=== PATIENT | female | born 1970 | race Two or more races ===

== ENCOUNTER 2025-01-05 21:19 | Inpatient (IN) | payer OTHER ==
[~2025-01-05] VITALS: Ht 167.6 cm; Wt 116.6 kg
[2025-01-05 21:38] VITALS: PULSE 144; RESP 29; O2SAT 95
[2025-01-05] MEDS ORDERED: ACETAMINOPHEN 650MG SUPP PR PRN (21:45)
[2025-01-05] MEDS ORDERED: AMIODARONE 360MG/200ML 200 ML IV SCH (21:45)
[2025-01-05] MEDS: AMIODARONE 360MG/200ML 200 ML IV SCH ×2 (22:00→22:12)
[2025-01-05] MEDS: MAGNESIUM 2 G PREMIX 50 ML IV ONE (22:06)
[2025-01-05] MEDS: HEPARIN 5000 UNITS/ML VIAL IV ONE (22:06)
[2025-01-05] MEDS: SODIUM CHLORIDE 0.9% 500 ML IV ONE (22:08)
[2025-01-05] MEDS ORDERED: HEPARIN 1000 UNITS/ML 10ML ONE ×2 (22:09→23:01)
[2025-01-05] MEDS ORDERED: IODIXANOL 320 MG/ML 150ML BOTTLE IV ONE (22:09)
[2025-01-05] MEDS ORDERED: LIDOCAINE HCL 1% 20ML VIAL ONE (22:09)
[2025-01-05] MEDS: ASPIRIN 325MG TABLET NG ONE (22:13)
[2025-01-05 22:24] LABS: BASOPHILS % 1.0 % (0.0-2.0); EOSINOPHILS % 3.8 % (0.0-5.0); HEMATOCRIT. 35.9 % (36.0-48.0); HEMOGLOBIN. 11.1 g/dL (12.0-16.0); LYMPHOCYTES % 65.7 % (20.0-50.0); MEAN PLATELET VOLUME 8.4 fl (7.4-10.4); MONOCYTES % 3.6 % (2.0-8.0); NEUTROPHILS % 25.9 % (40.0-76.0); PLATELET 209 x1000/uL (130-400); RED BLOOD CELL COUNT 3.92 mill/uL (4.2-5.4); RED CELL DISTRIBUTION WIDTH 15.4 % (11.6-14.6)
[2025-01-05 22:25] VITALS: PULSE 108; RESP 27; O2SAT 97
[2025-01-05 22:32] LABS: INR 1.0
[2025-01-05 22:41] LABS: CREATININE 1.5 mg/dL (0.6-1.0); UREA NITROGEN BLOOD 14 mg/dL (9-23)
[2025-01-05] MEDS ORDERED: EPINEPHRINE 0.1MG/ML (1:10,000) 10ML SYR ONE (22:42)
[2025-01-05] MEDS ORDERED: ATROPINE SULFATE 1MG/10ML SYR ONE (22:42)
[2025-01-05 22:43] LABS: ASPARTATE AMINOTRANSFERASE 209 IU/L (<34); BILIRUBIN DIRECT < 0.1 mg/dL (<=3.0); BILIRUBIN TOTAL 0.2 mg/dL (0.1-1.0); PROTEIN TOTAL 5.0 g/dL (6.0-8.3)
[2025-01-05 22:47] LABS: TROPONIN I HIGH SENSITIVITY 200 ng/L (3.0-34)
[2025-01-05 22:48] LABS: PHOSPHORUS 9.7 mg/dL (2.5-4.9)
[2025-01-05] MEDS ORDERED: DOCUSATE SODIUM 100MG CAPSULE PO PRN (23:00)
[2025-01-05 23:02] LABS: BG BASE EXCESS -9.7 mmol/L (-2.0-3.0); BG CARBOXYHEMOGLOBIN 0.7 % (0.5-1.5); BG DEOXYHEMOGLOBIN 5.4 % (0.0-5.0); BG FRACTION INSPIRED OXYGEN 100; BG HCO3 ACT 17.0 mmol/L (21.0-28.0); BG METHEMOGLOBIN 0.0 % (0.5-1.5); BG OXYGEN SATURATION 94.6 % (94.0-98.0); BG OXYHEMOGLOBIN 93.9 % (94.0-98.0); BG PCO2 39.8 mmHg (32.0-45.0); BG PEEP (cmH2O) 5.0 cmH2O; BG PH 7.248 (7.350-7.450); BG PO2 87.3 mmHg (83.0-108.0); BG SAMPLE SITE ALINE; BG TIDAL VOLUME(mL) 400.0 mL; BG TOTAL HEMOGLOBIN 12.2 g/dL (12.0-16.0); BG VENT MODE VENT - AC; BG VENT RATE 26.0 set
[2025-01-05] MEDS ORDERED: TICAGRELOR 90 MG TABLET PO ONE (23:07)
[2025-01-05 23:19] VITALS: PULSE 76; RESP 28; O2SAT 98
[2025-01-05 23:25] VITALS: TEMP 98.3
[2025-01-05 23:36] VITALS: BP 123/82; PULSE 78; RESP 12; O2SAT 97
[2025-01-05 23:45] VITALS: BP 118/82; PULSE 72; RESP 29; O2SAT 93
[2025-01-05] MEDS ORDERED: IPRATROPIUM/ALBUTEROL 0.5-3(2.5)MG/3ML NEB NEB PRN (23:45)
[2025-01-06] VITALS (113 sets, daily range): BP systolic 85–228; BP diastolic 61–164; PULSE 57–112; RESP 12–33; TEMP 36.7–37.2; O2SAT 96–100
[2025-01-06] MEDS ORDERED: NOREPINEPHRINE 8MG/250ML PMX 250 ML IV PRN
[2025-01-06] MEDS: NOREPINEPHRINE 8MG/250ML PMX 250ML IV PRN (00:34)
[2025-01-06] MEDS: POTASSIUM CHLORIDE 20MEQ/PACKET PO SCH (00:41)
[2025-01-06] MEDS: DEXMEDETOMIDINE 100 ML IV PRN (00:56)
[2025-01-06 02:34] LABS: TROPONIN I HIGH SENSITIVITY 15898 ng/L (3.0-34)
[2025-01-06] MEDS ORDERED: MAGNESIUM 2 G PREMIX 50 ML IV PRN (04:45)
[2025-01-06] MEDS ORDERED: SODIUM PHOSPHATE 15 MMOL in SODIUM CHLORIDE 0.9% 245 ML IV PRN (04:45)
[2025-01-06] MEDS ORDERED: DEXTROSE 50% WATER 50ML SYRINGE IV PRN ×3 (04:45→08:45)
[2025-01-06] MEDS ORDERED: POTASSIUM CHLORIDE 40 MEQ in SODIUM CHLORIDE 0.9% 230 ML IV PRN (04:45)
[2025-01-06] MEDS ORDERED: BLOOD SUGAR DIAGNOSTIC STRIP TEST PRN ×2 (04:45→08:00)
[2025-01-06] MEDS: BLOOD SUGAR DIAGNOSTIC STRIP TEST SCH ×3 (05:20→12:37)
[2025-01-06] MEDS: DEXT 5%/0.9% NACL 1,000 ML IV SCH (05:23)
[2025-01-06] MEDS: INSULIN REGULAR 100U/100ML PMX 100 ML IV SCH (05:26)
[2025-01-06] MEDS: SODIUM CHLORIDE 0.9% 1,000 ML IV SCH (05:50)
[2025-01-06 06:10] LABS: PLATELET 324 x1000/uL (130-400); RED BLOOD CELL COUNT 4.66 mill/uL (4.2-5.4); RED CELL DISTRIBUTION WIDTH 14.8 % (11.6-14.6)
[2025-01-06 06:27] LABS: LDL CHOLESTEROL 108 mg/dL (5-100); TRIGLYCERIDE 119 mg/dL (0-150); UREA NITROGEN BLOOD 21 mg/dL (9-23)
[2025-01-06 06:28] LABS: ASPARTATE AMINOTRANSFERASE 579 IU/L (<34)
[2025-01-06 06:29] LABS: BILIRUBIN TOTAL 0.3 mg/dL (0.1-1.0); PROTEIN TOTAL 6.5 g/dL (6.0-8.3)
[2025-01-06 06:56] LABS: CREATININE 2.0 mg/dL (0.6-1.0)
[2025-01-06 06:58] LABS: TROPONIN I HIGH SENSITIVITY 45931 ng/L (3.0-34)
[2025-01-06] MEDS ORDERED: BLOOD SUGAR DIAGNOSTIC STRIP TEST SCH (07:50)
[2025-01-06] MEDS ORDERED: INSULIN LISPRO 100 UNITS/ML SUBCUT SCH (08:20)
[2025-01-06] MEDS ORDERED: PIPERACILLIN/TAZO 3.375G/50ML 50 ML IV SCH (09:00)
[2025-01-06] MEDS: ASPIRIN 81MG TABLET PO SCH (09:07)
[2025-01-06] MEDS: PANTOPRAZOLE SODIUM 40 MG/VIAL IV SCH (09:07)
[2025-01-06] MEDS: FUROSEMIDE 40MG TABLET PO SCH (09:07)
[2025-01-06] MEDS: TICAGRELOR 90 MG TABLET PO SCH (09:08)
[2025-01-06] MEDS: PIPERACILLIN/TAZO 3.375G/50ML 50 ML IV SCH (09:46)
[2025-01-06 09:49] LABS: PHOSPHORUS 2.5 mg/dL (2.5-4.9)
[2025-01-06 10:17] LABS: TROPONIN I HIGH SENSITIVITY 69330 ng/L (3.0-34)
[2025-01-06] MEDS: DEXT 5%/0.45% NACL 1000ML 1,000 ML IV SCH (10:29)
[2025-01-06 10:35] LABS: BG BASE EXCESS -3.0 mmol/L (-2.0-3.0); BG CARBOXYHEMOGLOBIN 0.7 % (0.5-1.5); BG DEOXYHEMOGLOBIN 0.0 % (0.0-5.0); BG HCO3 ACT 20.1 mmol/L (21.0-28.0); BG METHEMOGLOBIN 0.3 % (0.5-1.5); BG OXYGEN SATURATION 100.0 % (94.0-98.0); BG OXYHEMOGLOBIN 99.0 % (94.0-98.0); BG PCO2 30.4 mmHg (32.0-45.0); BG PH 7.438 (7.350-7.450); BG PO2 356.5 mmHg (83.0-108.0); BG TOTAL HEMOGLOBIN 13.7 g/dL (12.0-16.0)
[2025-01-06] MEDS: FUROSEMIDE 100MG/10ML VIAL IVP SCH (12:01)
[2025-01-06] MEDS: VANCOMYCIN 2,000 MG in DEXT 5% WATER 500 ML IV NR (12:03)
[2025-01-06] MEDS: INSULIN LISPRO 100 UNITS/ML SUBCUT SCH (12:42)
[2025-01-06 13:21] LABS: PHOSPHORUS 1.8 mg/dL (2.5-4.9)
[2025-01-06] MEDS: ATORVASTATIN CALCIUM 40MG TABLET PO SCH (21:10)
[2025-01-06 22:31] LABS: CLARITY URINE CLEAR (CLEAR); COLOR URINE YELLOW (YELLOW); GLUCOSE URINE NEGATIVE (NEGATIVE); KETONES URINE NEGATIVE (NEGATIVE); LEUKOCYTE ESTERASE URINE NEGATIVE (NEGATIVE); NITRITE URINE NEGATIVE (NEGATIVE); OCCULT BLOOD URINE 2+ (NEGATIVE); PH URINE 7.0 (4.5-8.0); PROTEIN URINE TRACE (NEGATIVE); SPECIFIC GRAVITY URINE 1.009 (1.005-1.030); UROBILINOGEN URINE 0.2 E.U./dL (0.2-1.0)
[2025-01-06 22:37] LABS: *AMPHETAMINES SCREEN URINE NEGATIVE (NEGATIVE); *BARBITURATES SCREEN URINE NEGATIVE (NEGATIVE); *BENZODIAZEPINES SCREEN URINE NEGATIVE (NEGATIVE); *COCAINE SCREEN URINE NEGATIVE (NEGATIVE); BACTERIA URINE TRACE; CANNABINOID URINE SCREEN NEGATIVE (NEGATIVE); ECSTASY MDMA SCREEN URINE NEGATIVE (NEGATIVE); METHADONE URINE SCREEN NEGATIVE (NEGATIVE); OPIATES URINE SCREEN NEGATIVE (NEGATIVE); PHENCYCLIDINE URINE SCREEN NEGATIVE (NEGATIVE); SQUAMOUS EPITHELIAL CELL URINE RARE /lpf (RARE/1+); WBC URINE 0-2 /hpf (0-2)
[2025-01-07] VITALS (71 sets, daily range): BP systolic 89–157; BP diastolic 56–94; PULSE 60–97; RESP 17–23; TEMP 36.6–37.3; O2SAT 98–100
[2025-01-07 06:45] LABS: BASOPHILS % 0.2 % (0.0-2.0); EOSINOPHILS % 0.1 % (0.0-5.0); HEMATOCRIT. 35.6 % (36.0-48.0); HEMOGLOBIN. 11.6 g/dL (12.0-16.0); LYMPHOCYTES % 8.3 % (20.0-50.0); MEAN PLATELET VOLUME 8.5 fl (7.4-10.4); MONOCYTES % 8.0 % (2.0-8.0); NEUTROPHILS % 83.4 % (40.0-76.0); PLATELET 237 x1000/uL (130-400); RED BLOOD CELL COUNT 4.13 mill/uL (4.2-5.4); RED CELL DISTRIBUTION WIDTH 14.9 % (11.6-14.6)
[2025-01-07 07:01] LABS: UREA NITROGEN BLOOD 33 mg/dL (9-23)
[2025-01-07 07:03] LABS: PHOSPHORUS 3.4 mg/dL (2.5-4.9)
[2025-01-07 07:11] LABS: CREATININE 3.4 mg/dL (0.6-1.0)
[2025-01-07] MEDS ORDERED: FUROSEMIDE 40MG TABLET PO SCH (07:15)
[2025-01-07] MEDS: IPRATROPIUM/ALBUTEROL 0.5-3(2.5)MG/3ML NEB HHN PRN (10:01)
[2025-01-07] MEDS ORDERED: VANCOMYCIN 750MG PREMIX 150 ML IV SCH (11:00)
[2025-01-07 13:22] LABS: TROPONIN I HIGH SENSITIVITY 32025 ng/L (3.0-34)
[2025-01-07 15:00] LABS: BG BASE EXCESS 0.1 mmol/L (-2.0-3.0); BG CARBOXYHEMOGLOBIN 0.3 % (0.5-1.5); BG DEOXYHEMOGLOBIN 1.4 % (0.0-5.0); BG FRACTION INSPIRED OXYGEN 40; BG HCO3 ACT 23.4 mmol/L (21.0-28.0); BG METHEMOGLOBIN 0.3 % (0.5-1.5); BG OXYGEN SATURATION 98.6 % (94.0-98.0); BG OXYHEMOGLOBIN 98.0 % (94.0-98.0); BG PCO2 33.5 mmHg (32.0-45.0); BG PEEP (cmH2O) 5.0 cmH2O; BG PH 7.462 (7.350-7.450); BG PO2 128.4 mmHg (83.0-108.0); BG SAMPLE SITE RIGHT RADIAL; BG TIDAL VOLUME(mL) 450.0 mL; BG TOTAL HEMOGLOBIN 12.1 g/dL (12.0-16.0); BG VENT MODE VENT - AC; BG VENT RATE 18.0 set
[2025-01-07] MEDS: ENOXAPARIN 40MG/0.4ML SYR SUBCUT SCH (19:27)
[2025-01-07 20:26] LABS: TROPONIN I HIGH SENSITIVITY 31572 ng/L (3.0-34)
[2025-01-07 20:44] LABS: SODIUM URINE RANDOM 84.0 mEq/L
[2025-01-07 20:51] LABS: CREATININE URINE RANDOM 133.5 mg/dL
[2025-01-07] MEDS: KCL 20MEQ/100ML PREMIX 100 ML IV PRN (21:32)
[2025-01-08] VITALS (70 sets, daily range): BP systolic 102–137; BP diastolic 64–90; PULSE 65–87; RESP 16–30; TEMP 36.3–37.1; O2SAT 98–100
[2025-01-08 01:59] LABS: TROPONIN I HIGH SENSITIVITY 34809 ng/L (3.0-34)
[2025-01-08] MEDS: MIDAZOLAM HCL 2 MG/2 ML VIAL IV SCH (02:29)
[2025-01-08 06:46] LABS: INR 1.0
[2025-01-08 06:52] LABS: BASOPHILS % 0.2 % (0.0-2.0); EOSINOPHILS % 0.2 % (0.0-5.0); HEMATOCRIT. 34.1 % (36.0-48.0); HEMOGLOBIN. 11.5 g/dL (12.0-16.0); LYMPHOCYTES % 9.8 % (20.0-50.0); MEAN PLATELET VOLUME 8.8 fl (7.4-10.4); MONOCYTES % 8.6 % (2.0-8.0); NEUTROPHILS % 81.2 % (40.0-76.0); PLATELET 212 x1000/uL (130-400); RED BLOOD CELL COUNT 3.96 mill/uL (4.2-5.4); RED CELL DISTRIBUTION WIDTH 14.8 % (11.6-14.6)
[2025-01-08 07:02] LABS: CREATININE 3.6 mg/dL (0.6-1.0)
[2025-01-08 07:03] LABS: UREA NITROGEN BLOOD 38 mg/dL (9-23)
[2025-01-08 07:04] LABS: PHOSPHORUS 4.4 mg/dL (2.5-4.9)
[2025-01-08 07:30] LABS: TROPONIN I HIGH SENSITIVITY 23398 ng/L (3.0-34)
[2025-01-08 09:18] LABS: BG BASE EXCESS 1.0 mmol/L (-2.0-3.0); BG CARBOXYHEMOGLOBIN 0.3 % (0.5-1.5); BG DEOXYHEMOGLOBIN 1.0 % (0.0-5.0); BG FRACTION INSPIRED OXYGEN 40; BG HCO3 ACT 24.4 mmol/L (21.0-28.0); BG METHEMOGLOBIN 0.3 % (0.5-1.5); BG OXYGEN SATURATION 99.0 % (94.0-98.0); BG OXYHEMOGLOBIN 98.4 % (94.0-98.0); BG PCO2 34.6 mmHg (32.0-45.0); BG PEEP (cmH2O) 5.0 cmH2O; BG PH 7.466 (7.350-7.450); BG PO2 145.3 mmHg (83.0-108.0); BG SAMPLE SITE RIGHT RADIAL; BG TIDAL VOLUME(mL) 450.0 mL; BG TOTAL HEMOGLOBIN 11.4 g/dL (12.0-16.0); BG VENT MODE VENT - AC; BG VENT RATE 20.0 set
[2025-01-08] MEDS: LORAZEPAM 0.5MG TABLET PO PRN (09:38)
[2025-01-08] MEDS: FUROSEMIDE 40MG/4ML VIAL IVP SCH (10:51)
[2025-01-08 10:55] LABS: BG BASE EXCESS -2.3 mmol/L (-2.0-3.0); BG CARBOXYHEMOGLOBIN 0.4 % (0.5-1.5); BG DEOXYHEMOGLOBIN 1.7 % (0.0-5.0); BG FRACTION INSPIRED OXYGEN 30; BG HCO3 ACT 22.0 mmol/L (21.0-28.0); BG METHEMOGLOBIN 0.0 % (0.5-1.5); BG OXYGEN SATURATION 98.3 % (94.0-98.0); BG OXYHEMOGLOBIN 97.9 % (94.0-98.0); BG PCO2 36.0 mmHg (32.0-45.0); BG PEEP (cmH2O) 5.0 cmH2O; BG PH 7.404 (7.350-7.450); BG PO2 131.4 mmHg (83.0-108.0); BG SAMPLE SITE RIGHT RADIAL; BG TIDAL VOLUME(mL) 300.0 mL; BG TOTAL HEMOGLOBIN 11.5 g/dL (12.0-16.0); BG VENT MODE VENT - SIMV; BG VENT RATE 5.0 set
[2025-01-08] MEDS: MIDAZOLAM 100MG/100ML PMX 100 ML IV PRN (11:53)
[2025-01-08 13:13] LABS: TROPONIN I HIGH SENSITIVITY 20353 ng/L (3.0-34)
[2025-01-08 19:05] LABS: TROPONIN I HIGH SENSITIVITY 17808 ng/L (3.0-34)
[2025-01-08] MEDS: GUAIFENESIN 200MG/10ML SUGAR FREE UDC PO PRN (21:15)
[2025-01-08] MEDS ORDERED: CHLORDIAZEPOXIDE 25MG CAPSULE PO SCH (22:00)
[2025-01-09] VITALS (62 sets, daily range): BP systolic 92–138; BP diastolic 51–90; PULSE 65–100; RESP 16–39; TEMP 37–38.1; O2SAT 91–99
[2025-01-09] MEDS: IPRATROPIUM/ALBUTEROL 0.5-3(2.5)MG/3ML NEB HHN SCH (02:30)
[2025-01-09 07:23] LABS: BASOPHILS % 0.1 % (0.0-2.0); EOSINOPHILS % 0.2 % (0.0-5.0); HEMATOCRIT. 35.9 % (36.0-48.0); HEMOGLOBIN. 11.6 g/dL (12.0-16.0); LYMPHOCYTES % 8.3 % (20.0-50.0); MEAN PLATELET VOLUME 8.8 fl (7.4-10.4); MONOCYTES % 5.9 % (2.0-8.0); NEUTROPHILS % 85.5 % (40.0-76.0); PLATELET 276 x1000/uL (130-400); RED BLOOD CELL COUNT 4.16 mill/uL (4.2-5.4); RED CELL DISTRIBUTION WIDTH 15.0 % (11.6-14.6)
[2025-01-09 07:33] LABS: INR 1.0
[2025-01-09 07:54] LABS: CREATININE 3.6 mg/dL (0.6-1.0)
[2025-01-09 07:55] LABS: UREA NITROGEN BLOOD 47 mg/dL (9-23)
[2025-01-09 07:57] LABS: PHOSPHORUS 6.2 mg/dL (2.5-4.9)
[2025-01-09 08:05] LABS: FOLIC ACID (FOLATE) SERUM 15.35 ng/mL (>5.38)
[2025-01-09 08:06] LABS: VITAMIN B12 SERUM 451 pg/mL (211-911)
[2025-01-09 08:13] LABS: *CREATININE RANDOM URINE 131.0 mg/dL (Not Estab.); MICROALBUMIN RANDOM URINE 200.7 ug/mL (Not Estab.); MICROALBUMIN/CREATININE RATIO 153.0 mg/g creat (0-29)
[2025-01-09 09:22] LABS: BG BASE EXCESS -2.5 mmol/L (-2.0-3.0); BG CARBOXYHEMOGLOBIN 1.2 % (0.5-1.5); BG DEOXYHEMOGLOBIN 2.9 % (0.0-5.0); BG FRACTION INSPIRED OXYGEN 30; BG HCO3 ACT 21.2 mmol/L (21.0-28.0); BG METHEMOGLOBIN 0.0 % (0.5-1.5); BG OXYGEN SATURATION 97.1 % (94.0-98.0); BG OXYHEMOGLOBIN 95.9 % (94.0-98.0); BG PCO2 33.9 mmHg (32.0-45.0); BG PEEP (cmH2O) 5.0 cmH2O; BG PH 7.415 (7.350-7.450); BG PO2 96.5 mmHg (83.0-108.0); BG SAMPLE SITE RIGHT RADIAL; BG TIDAL VOLUME(mL) 450.0 mL; BG TOTAL HEMOGLOBIN 14.3 g/dL (12.0-16.0); BG VENT MODE VENT - AC; BG VENT RATE 20.0 set
[2025-01-09] MEDS: NICOTINE 14MG PATCH TD SCH (09:32)
[2025-01-09] MEDS: FAMOTIDINE 20MG/2ML VIAL IV SCH (09:32)
[2025-01-09] MEDS: ONDANSETRON HCL 4MG/2ML INJ IV PRN (14:43)
[2025-01-09] MEDS: METOCLOPRAMIDE HCL 10MG/2ML VIAL IV SCH (19:33)
[2025-01-09] MEDS: ACETAMINOPHEN 325MG TABLET PO PRN (21:26)
[2025-01-10] VITALS (98 sets, daily range): BP systolic 94–152; BP diastolic 55–83; PULSE 60–104; RESP 16–23; TEMP 36.6–38.1; O2SAT 93–100
[2025-01-10 07:05] LABS: HEMATOCRIT. 32.1 % (36.0-48.0); HEMOGLOBIN. 10.5 g/dL (12.0-16.0); MEAN PLATELET VOLUME 8.5 fl (7.4-10.4); PLATELET 257 x1000/uL (130-400); RED BLOOD CELL COUNT 3.74 mill/uL (4.2-5.4); RED CELL DISTRIBUTION WIDTH 14.2 % (11.6-14.6)
[2025-01-10 07:31] LABS: CREATININE 3.2 mg/dL (0.6-1.0); UREA NITROGEN BLOOD 51 mg/dL (9-23)
[2025-01-10 07:33] LABS: PHOSPHORUS 4.6 mg/dL (2.5-4.9)
[2025-01-10] MEDS: PANTOPRAZOLE SODIUM 40 MG/VIAL IV SCH (08:20)
[2025-01-10] MEDS: DEXT 5%/0.45% NACL 1000ML 1,000 ML IV SCH (08:25)
[2025-01-10 09:05] LABS: BG BASE EXCESS 0.1 mmol/L (-2.0-3.0); BG CARBOXYHEMOGLOBIN 1.1 % (0.5-1.5); BG DEOXYHEMOGLOBIN 1.9 % (0.0-5.0); BG FRACTION INSPIRED OXYGEN 30; BG HCO3 ACT 23.1 mmol/L (21.0-28.0); BG METHEMOGLOBIN 0.1 % (0.5-1.5); BG OXYGEN SATURATION 98.1 % (94.0-98.0); BG OXYHEMOGLOBIN 96.9 % (94.0-98.0); BG PCO2 32.4 mmHg (32.0-45.0); BG PEEP (cmH2O) 5.0 cmH2O; BG PH 7.471 (7.350-7.450); BG PO2 105.9 mmHg (83.0-108.0); BG SAMPLE SITE RIGHT RADIAL; BG TIDAL VOLUME(mL) 450.0 mL; BG TOTAL HEMOGLOBIN 12.3 g/dL (12.0-16.0); BG VENT MODE VENT - AC; BG VENT RATE 20.0 set
[2025-01-10 10:13] LABS: BAND% 2.0 % (1.0-6.0); EOSINOPHILS % MANUAL 2.0 % (0.0-5.0); LYMPHOCYTES % MANUAL 6.0 % (20.0-60.0); MONOCYTES % MANUAL 10.0 % (2.0-8.0); NEUTROPHILS % MANUAL 80.0 % (45.0-75.0); PLATELET ESTIMATE NORMAL
[2025-01-10] MEDS: ACETAMINOPHEN 325MG TABLET PO PRN (21:49)
[2025-01-11] VITALS (82 sets, daily range): BP systolic 101–183; BP diastolic 56–122; PULSE 73–114; RESP 18–30; TEMP 36.5–37.7; O2SAT 90–99
[2025-01-11 07:10] LABS: BASOPHILS % 0.1 % (0.0-2.0); CREATININE 3.0 mg/dL (0.6-1.0); EOSINOPHILS % 1.5 % (0.0-5.0); HEMATOCRIT. 33.9 % (36.0-48.0); HEMOGLOBIN. 11.1 g/dL (12.0-16.0); LYMPHOCYTES % 7.4 % (20.0-50.0); MEAN PLATELET VOLUME 8.6 fl (7.4-10.4); MONOCYTES % 9.0 % (2.0-8.0); NEUTROPHILS % 82.0 % (40.0-76.0); PLATELET 293 x1000/uL (130-400); RED BLOOD CELL COUNT 3.92 mill/uL (4.2-5.4); RED CELL DISTRIBUTION WIDTH 14.7 % (11.6-14.6)
[2025-01-11 07:11] LABS: UREA NITROGEN BLOOD 47 mg/dL (9-23)
[2025-01-11 07:13] LABS: PHOSPHORUS 4.0 mg/dL (2.5-4.9)
[2025-01-11] MEDS: DEXMEDETOMIDINE 100 ML IV PRN (09:19)
[2025-01-11 10:08] LABS: BG BASE EXCESS 0.4 mmol/L (-2.0-3.0); BG CARBOXYHEMOGLOBIN 0.1 % (0.5-1.5); BG DEOXYHEMOGLOBIN 3.2 % (0.0-5.0); BG FRACTION INSPIRED OXYGEN 30; BG HCO3 ACT 23.9 mmol/L (21.0-28.0); BG METHEMOGLOBIN 0.1 % (0.5-1.5); BG OXYGEN SATURATION 96.8 % (94.0-98.0); BG OXYHEMOGLOBIN 96.6 % (94.0-98.0); BG PCO2 34.7 mmHg (32.0-45.0); BG PEEP (cmH2O) 5.0 cmH2O; BG PH 7.456 (7.350-7.450); BG PO2 89.6 mmHg (83.0-108.0); BG SAMPLE SITE RIGHT RADIAL; BG TIDAL VOLUME(mL) 450.0 mL; BG TOTAL HEMOGLOBIN 12.0 g/dL (12.0-16.0); BG VENT MODE VENT - AC; BG VENT RATE 20.0 set
[2025-01-11] MEDS: DEXTROSE 5% WATER 1,000 ML IV SCH (14:49)
[2025-01-11] MEDS: BISACODYL 10MG SUPP PR PRN (17:34)
[2025-01-12] VITALS (33 sets, daily range): BP systolic 102–146; BP diastolic 60–90; PULSE 65–114; RESP 13–23; TEMP 36.6–38.4; O2SAT 92–100
[2025-01-12 07:19] LABS: CREATININE 2.6 mg/dL (0.6-1.0); INR 1.0; UREA NITROGEN BLOOD 43 mg/dL (9-23)
[2025-01-12 07:21] LABS: PHOSPHORUS 3.6 mg/dL (2.5-4.9)
[2025-01-12 07:26] LABS: BASOPHILS % 0.1 % (0.0-2.0); EOSINOPHILS % 3.3 % (0.0-5.0); HEMATOCRIT. 33.9 % (36.0-48.0); HEMOGLOBIN. 10.9 g/dL (12.0-16.0); LYMPHOCYTES % 7.7 % (20.0-50.0); MEAN PLATELET VOLUME 8.5 fl (7.4-10.4); MONOCYTES % 9.6 % (2.0-8.0); NEUTROPHILS % 79.3 % (40.0-76.0); PLATELET 299 x1000/uL (130-400); RED BLOOD CELL COUNT 3.92 mill/uL (4.2-5.4); RED CELL DISTRIBUTION WIDTH 15.1 % (11.6-14.6)
[2025-01-12 08:34] LABS: BG BASE EXCESS 0.5 mmol/L (-2.0-3.0); BG CARBOXYHEMOGLOBIN 0.2 % (0.5-1.5); BG DEOXYHEMOGLOBIN 2.0 % (0.0-5.0); BG FRACTION INSPIRED OXYGEN 30; BG HCO3 ACT 24.0 mmol/L (21.0-28.0); BG METHEMOGLOBIN 0.0 % (0.5-1.5); BG OXYGEN SATURATION 98.0 % (94.0-98.0); BG OXYHEMOGLOBIN 97.8 % (94.0-98.0); BG PCO2 34.8 mmHg (32.0-45.0); BG PEEP (cmH2O) 5.0 cmH2O; BG PH 7.457 (7.350-7.450); BG PO2 105.2 mmHg (83.0-108.0); BG SAMPLE SITE RIGHT RADIAL; BG TIDAL VOLUME(mL) 450.0 mL; BG TOTAL HEMOGLOBIN 11.0 g/dL (12.0-16.0); BG VENT MODE VENT - AC; BG VENT RATE 20.0 set
[2025-01-13] VITALS (39 sets, daily range): BP systolic 98–154; BP diastolic 64–94; PULSE 62–79; RESP 13–26; TEMP 36.9–37.8; O2SAT 95–100
[2025-01-13 06:38] LABS: BASOPHILS % 0.3 % (0.0-2.0); EOSINOPHILS % 5.7 % (0.0-5.0); HEMATOCRIT. 34.9 % (36.0-48.0); HEMOGLOBIN. 10.9 g/dL (12.0-16.0); LYMPHOCYTES % 12.4 % (20.0-50.0); MEAN PLATELET VOLUME 8.4 fl (7.4-10.4); MONOCYTES % 14.4 % (2.0-8.0); NEUTROPHILS % 67.2 % (40.0-76.0); PLATELET 319 x1000/uL (130-400); RED BLOOD CELL COUNT 3.92 mill/uL (4.2-5.4); RED CELL DISTRIBUTION WIDTH 14.9 % (11.6-14.6)
[2025-01-13 06:45] LABS: CREATININE 2.3 mg/dL (0.6-1.0); UREA NITROGEN BLOOD 42.0 mg/dL (9-23)
[2025-01-13] MEDS: DIATR MEGLU/DIATRIZOATE SOLN 30ML PO SCH (09:08)
[2025-01-14] VITALS (48 sets, daily range): BP systolic 101–127; BP diastolic 54–76; PULSE 62–80; RESP 6–24; TEMP 37.2–38.1; O2SAT 95–100
[2025-01-14] MEDS: METOCLOPRAMIDE HCL 10MG/2ML VIAL IV SCH (00:05)
[2025-01-14 06:24] LABS: CREATININE 2.0 mg/dL (0.6-1.0); UREA NITROGEN BLOOD 40 mg/dL (9-23)
[2025-01-14 06:26] LABS: PHOSPHORUS 3.3 mg/dL (2.5-4.9)
[2025-01-14 06:27] LABS: BASOPHILS % 0.3 % (0.0-2.0); EOSINOPHILS % 5.0 % (0.0-5.0); HEMATOCRIT. 34.9 % (36.0-48.0); HEMOGLOBIN. 11.3 g/dL (12.0-16.0); LYMPHOCYTES % 10.3 % (20.0-50.0); MONOCYTES % 12.9 % (2.0-8.0); NEUTROPHILS % 71.5 % (40.0-76.0); RED BLOOD CELL COUNT 3.93 mill/uL (4.2-5.4); RED CELL DISTRIBUTION WIDTH 14.6 % (11.6-14.6)
[2025-01-14] MEDS ORDERED: LIDOCAINE HCL 1% 20ML VIAL ONE (11:17)
[2025-01-14] MEDS: DEXTROSE 5% WATER 1,000 ML IV SCH (12:24)
[2025-01-14 21:13] LABS: PLATELET 347 x1000/uL (130-400)
[2025-01-14] MEDS: TOTAL PARENTERAL NUTRITION 1,440 ML IV SCH (21:36)
[2025-01-15] VITALS (66 sets, daily range): BP systolic 114–167; BP diastolic 53–108; PULSE 64–91; RESP 16–24; TEMP 37.1–37.6; O2SAT 97–100
[2025-01-15 06:29] LABS: BASOPHILS % 0.1 % (0.0-2.0); EOSINOPHILS % 4.5 % (0.0-5.0); HEMATOCRIT. 30.2 % (36.0-48.0); HEMOGLOBIN. 10.0 g/dL (12.0-16.0); LYMPHOCYTES % 11.8 % (20.0-50.0); MEAN PLATELET VOLUME 8.1 fl (7.4-10.4); MONOCYTES % 11.4 % (2.0-8.0); NEUTROPHILS % 72.2 % (40.0-76.0); PLATELET 338 x1000/uL (130-400); RED BLOOD CELL COUNT 3.46 mill/uL (4.2-5.4); RED CELL DISTRIBUTION WIDTH 13.8 % (11.6-14.6)
[2025-01-15 06:48] LABS: CREATININE 1.9 mg/dL (0.6-1.0)
[2025-01-15 06:49] LABS: LDL CHOLESTEROL 52 mg/dL (5-100); TRIGLYCERIDE 126 mg/dL (0-150); UREA NITROGEN BLOOD 36 mg/dL (9-23)
[2025-01-15 06:50] LABS: PHOSPHORUS 3.2 mg/dL (2.5-4.9)
[2025-01-16] VITALS (109 sets, daily range): BP systolic 115–185; BP diastolic 63–136; PULSE 62–116; RESP 7–25; TEMP 36.6–38; O2SAT 97–100
[2025-01-16 06:36] LABS: CREATININE 1.5 mg/dL (0.6-1.0); UREA NITROGEN BLOOD 28 mg/dL (9-23)
[2025-01-16 06:38] LABS: ASPARTATE AMINOTRANSFERASE 18 IU/L (<34); PHOSPHORUS 2.6 mg/dL (2.5-4.9)
[2025-01-16 15:45] LABS: BG BASE EXCESS -0.5 mmol/L (-2.0-3.0); BG CARBOXYHEMOGLOBIN 0.5 % (0.5-1.5); BG DEOXYHEMOGLOBIN 1.0 % (0.0-5.0); BG FRACTION INSPIRED OXYGEN 30; BG HCO3 ACT 18.8 mmol/L (21.0-28.0); BG METHEMOGLOBIN 0.6 % (0.5-1.5); BG OXYGEN SATURATION 99.0 % (94.0-98.0); BG OXYHEMOGLOBIN 97.9 % (94.0-98.0); BG PCO2 18.4 mmHg (32.0-45.0); BG PEEP (cmH2O) 5.0 cmH2O; BG PH 7.628 (7.350-7.450); BG PO2 132.9 mmHg (83.0-108.0); BG SAMPLE SITE RIGHT RADIAL; BG TOTAL HEMOGLOBIN 11.1 g/dL (12.0-16.0); BG VENT MODE VENT - CPAP
[2025-01-16] MEDS: FAT EMULSIONS 500 ML IV SCH (21:35)
[2025-01-16 21:36] LABS: BG BASE EXCESS 0.2 mmol/L (-2.0-3.0); BG CARBOXYHEMOGLOBIN 0.3 % (0.5-1.5); BG DEOXYHEMOGLOBIN 1.0 % (0.0-5.0); BG FRACTION INSPIRED OXYGEN 30; BG HCO3 ACT 21.8 mmol/L (21.0-28.0); BG METHEMOGLOBIN 0.3 % (0.5-1.5); BG OXYGEN SATURATION 99.0 % (94.0-98.0); BG OXYHEMOGLOBIN 98.4 % (94.0-98.0); BG PCO2 26.4 mmHg (32.0-45.0); BG PEEP (cmH2O) 5.0 cmH2O; BG PH 7.535 (7.350-7.450); BG PO2 143.4 mmHg (83.0-108.0); BG SAMPLE SITE LEFT RADIAL; BG TOTAL HEMOGLOBIN 11.1 g/dL (12.0-16.0); BG VENT MODE VENT - CPAP
[2025-01-17] VITALS (73 sets, daily range): BP systolic 110–187; BP diastolic 59–92; PULSE 74–103; RESP 11–30; TEMP 36.7–36.9; O2SAT 97–100
[2025-01-17] MEDS: CLONIDINE 0.1MG TABLET PO PRN (04:06)
[2025-01-17 07:23] LABS: CREATININE 1.6 mg/dL (0.6-1.0); UREA NITROGEN BLOOD 24 mg/dL (9-23)
[2025-01-17 07:25] LABS: PHOSPHORUS 2.0 mg/dL (2.5-4.9)
[2025-01-17] MEDS: KCL 20MEQ/100ML PREMIX 100 ML IV ONE (09:19)
[2025-01-17] MEDS: MAGNESIUM 2 G PREMIX 50 ML IV ONE (09:19)
[2025-01-17 14:46] LABS: BG BASE EXCESS -0.1 mmol/L (-2.0-3.0); BG CARBOXYHEMOGLOBIN 0.9 % (0.5-1.5); BG DEOXYHEMOGLOBIN 0.9 % (0.0-5.0); BG FRACTION INSPIRED OXYGEN 30; BG HCO3 ACT 22.9 mmol/L (21.0-28.0); BG METHEMOGLOBIN 0.2 % (0.5-1.5); BG OXYGEN SATURATION 99.1 % (94.0-98.0); BG OXYHEMOGLOBIN 98.0 % (94.0-98.0); BG PCO2 31.4 mmHg (32.0-45.0); BG PEEP (cmH2O) 5.0 cmH2O; BG PH 7.480 (7.350-7.450); BG PO2 143.1 mmHg (83.0-108.0); BG SAMPLE SITE RIGHT RADIAL; BG TOTAL HEMOGLOBIN 10.1 g/dL (12.0-16.0); BG VENT MODE VENT - CPAP
[2025-01-17] MEDS: RACEPINEPHRINE 2.25% 0.5ML NEB VIAL HHN SCH (18:35)
[2025-01-17] MEDS: IPRATROPIUM/ALBUTEROL 0.5-3(2.5)MG/3ML NEB HHN SCH (21:27)
[2025-01-17 23:16] LABS: BG BASE EXCESS -0.5 mmol/L (-2.0-3.0); BG CARBOXYHEMOGLOBIN 0.8 % (0.5-1.5); BG DEOXYHEMOGLOBIN 3.5 % (0.0-5.0); BG FRACTION INSPIRED OXYGEN 21; BG HCO3 ACT 23.6 mmol/L (21.0-28.0); BG METHEMOGLOBIN 0.4 % (0.5-1.5); BG OXYGEN SATURATION 96.5 % (94.0-98.0); BG OXYHEMOGLOBIN 95.3 % (94.0-98.0); BG PCO2 37.1 mmHg (32.0-45.0); BG PH 7.422 (7.350-7.450); BG PO2 83.2 mmHg (83.0-108.0); BG SAMPLE SITE LEFT RADIAL; BG TOTAL HEMOGLOBIN 12.4 g/dL (12.0-16.0); BG VENT MODE ROOM AIR
[2025-01-18] VITALS (59 sets, daily range): BP systolic 104–178; BP diastolic 61–123; PULSE 73–104; RESP 13–35; TEMP 36.8–37.1; O2SAT 94–100
[2025-01-18] MEDS: ACETYLCYSTEINE 200MG/ML 20% VIAL 4ML INH SCH (06:00)
[2025-01-18 08:01] LABS: BASOPHILS % 0.1 % (0.0-2.0); EOSINOPHILS % 3.2 % (0.0-5.0); HEMATOCRIT. 32.7 % (36.0-48.0); HEMOGLOBIN. 10.6 g/dL (12.0-16.0); LYMPHOCYTES % 8.8 % (20.0-50.0); MEAN PLATELET VOLUME 7.8 fl (7.4-10.4); MONOCYTES % 5.9 % (2.0-8.0); NEUTROPHILS % 82.0 % (40.0-76.0); PLATELET 390 x1000/uL (130-400); RED BLOOD CELL COUNT 3.80 mill/uL (4.2-5.4); RED CELL DISTRIBUTION WIDTH 13.6 % (11.6-14.6)
[2025-01-18 08:46] LABS: CREATININE 1.4 mg/dL (0.6-1.0); UREA NITROGEN BLOOD 21 mg/dL (9-23)
[2025-01-18 08:48] LABS: PHOSPHORUS 2.2 mg/dL (2.5-4.9)
[2025-01-18] MEDS: LORAZEPAM 2MG/ML UD SYRINGE IV SCH (12:15)
[2025-01-18 13:29] LABS: CLARITY URINE CLEAR (CLEAR); COLOR URINE YELLOW (YELLOW); GLUCOSE URINE NEGATIVE (NEGATIVE); KETONES URINE NEGATIVE (NEGATIVE); LEUKOCYTE ESTERASE URINE NEGATIVE (NEGATIVE); NITRITE URINE NEGATIVE (NEGATIVE); OCCULT BLOOD URINE NEGATIVE (NEGATIVE); PH URINE 5.5 (4.5-8.0); PROTEIN URINE NEGATIVE (NEGATIVE); SPECIFIC GRAVITY URINE 1.011 (1.005-1.030); UROBILINOGEN URINE 0.2 E.U./dL (0.2-1.0)
[2025-01-18] MEDS: TOTAL PARENTERAL NUTRITION 1,600 ML IV SCH (19:58)
[2025-01-19] VITALS (16 sets, daily range): BP systolic 122–152; BP diastolic 64–93; PULSE 73–102; RESP 17–30; TEMP 36.8–37.5; O2SAT 94–99
[2025-01-19 05:38] LABS: CREATININE 1.3 mg/dL (0.6-1.0)
[2025-01-19 05:39] LABS: UREA NITROGEN BLOOD 19 mg/dL (9-23)
[2025-01-19 05:40] LABS: ASPARTATE AMINOTRANSFERASE 31 IU/L (<34)
[2025-01-19 05:41] LABS: BILIRUBIN TOTAL 0.5 mg/dL (0.1-1.0); PROTEIN TOTAL 6.8 g/dL (6.0-8.3)
[2025-01-19 06:28] LABS: BASOPHILS % 0.2 % (0.0-2.0); EOSINOPHILS % 3.6 % (0.0-5.0); HEMATOCRIT. 33.9 % (36.0-48.0); HEMOGLOBIN. 11.2 g/dL (12.0-16.0); LYMPHOCYTES % 9.6 % (20.0-50.0); MEAN PLATELET VOLUME 8.1 fl (7.4-10.4); MONOCYTES % 6.9 % (2.0-8.0); NEUTROPHILS % 79.7 % (40.0-76.0); PLATELET 388 x1000/uL (130-400); RED BLOOD CELL COUNT 3.97 mill/uL (4.2-5.4); RED CELL DISTRIBUTION WIDTH 13.9 % (11.6-14.6)
[2025-01-19] MEDS: PIPERACILLIN/TAZO 3.375G/50ML 50 ML IV SCH (10:35)
[2025-01-19] MEDS ORDERED: TOTAL PARENTERAL NUTRITION 1,600 ML IV SCH (11:30)
[2025-01-19] MEDS ORDERED: TOTAL PARENTERAL NUTRITION 1,100 ML IV SCH (11:30)
[2025-01-19] MEDS: TOTAL PARENTERAL NUTRITION 1,100 ML IV SCH (20:27)
[2025-01-20] VITALS (17 sets, daily range): BP systolic 113–158; BP diastolic 71–99; PULSE 79–111; RESP 16–44; TEMP 36.3–36.9; O2SAT 94–99
[2025-01-20 06:20] LABS: CREATININE 1.5 mg/dL (0.6-1.0); TRIGLYCERIDE 106 mg/dL (0-150); UREA NITROGEN BLOOD 20 mg/dL (9-23)
[2025-01-20 06:22] LABS: ASPARTATE AMINOTRANSFERASE 36 IU/L (<34); BILIRUBIN TOTAL 0.7 mg/dL (0.1-1.0); PROTEIN TOTAL 7.1 g/dL (6.0-8.3)
[2025-01-20 06:51] LABS: BASOPHILS % 0.3 % (0.0-2.0); EOSINOPHILS % 3.2 % (0.0-5.0); HEMATOCRIT. 34.9 % (36.0-48.0); HEMOGLOBIN. 11.5 g/dL (12.0-16.0); LYMPHOCYTES % 10.6 % (20.0-50.0); MEAN PLATELET VOLUME 8.1 fl (7.4-10.4); MONOCYTES % 6.1 % (2.0-8.0); NEUTROPHILS % 79.8 % (40.0-76.0); PLATELET 396 x1000/uL (130-400); RED BLOOD CELL COUNT 4.07 mill/uL (4.2-5.4); RED CELL DISTRIBUTION WIDTH 13.6 % (11.6-14.6)
[2025-01-20] MEDS: DIPHENHYDRAMINE 25MG CAPSULE PO SCH (14:44)
[2025-01-20] MEDS: ENOXAPARIN 40MG/0.4ML SYR SUBCUT SCH (18:46)
[2025-01-21] VITALS (17 sets, daily range): BP systolic 108–151; BP diastolic 79–113; PULSE 74–111; RESP 16–29; TEMP 36.5–36.7; O2SAT 92–98
[2025-01-22] VITALS (21 sets, daily range): BP systolic 112–150; BP diastolic 63–106; PULSE 67–102; RESP 12–25; TEMP 36.7–37.2; O2SAT 91–100
[2025-01-22 07:36] LABS: BASOPHILS % 0.2 % (0.0-2.0); EOSINOPHILS % 5.1 % (0.0-5.0); HEMATOCRIT. 32.1 % (36.0-48.0); HEMOGLOBIN. 10.4 g/dL (12.0-16.0); LYMPHOCYTES % 15.0 % (20.0-50.0); MEAN PLATELET VOLUME 8.4 fl (7.4-10.4); MONOCYTES % 5.8 % (2.0-8.0); NEUTROPHILS % 73.9 % (40.0-76.0); PLATELET 379 x1000/uL (130-400); RED BLOOD CELL COUNT 3.75 mill/uL (4.2-5.4); RED CELL DISTRIBUTION WIDTH 13.7 % (11.6-14.6)
[2025-01-22 08:03] LABS: CREATININE 1.6 mg/dL (0.6-1.0)
[2025-01-22 08:04] LABS: UREA NITROGEN BLOOD 21.0 mg/dL (9-23)
[2025-01-22] MEDS: FAMOTIDINE 20MG/2ML VIAL IV SCH (10:06)
[2025-01-23] VITALS (15 sets, daily range): BP systolic 102–163; BP diastolic 55–110; PULSE 65–99; RESP 15–22; TEMP 36.3–37.2; O2SAT 95–100
[2025-01-23] MEDS: DIPHENHYDRAMINE 25MG CAPSULE PO PRN (00:32)
[2025-01-24 03:59] VITALS: BP 116/92; PULSE 65; RESP 20; TEMP 36.4; O2SAT 99
[2025-01-24 06:48] LABS: CREATININE 1.6 mg/dL (0.6-1.0); UREA NITROGEN BLOOD 15.0 mg/dL (9-23)
[2025-01-24 08:09] VITALS: BP 128/72; PULSE 64; RESP 19; TEMP 36.4; O2SAT 98
[2025-01-24] MEDS ORDERED: ASPI-1160 PO (11:52)
[2025-01-24] MEDS ORDERED: TOPUD PO (11:52)
[2025-01-24] MEDS ORDERED: DOCU-422 PO (11:52)
[2025-01-24] MEDS ORDERED: TICA90TA PO (11:52)
[2025-01-24] MEDS ORDERED: LIP40 PO (11:52)
[2025-01-24] MEDS ORDERED: ENOX40DI8 SUBCUT (11:52)
[2025-01-24 12:12] VITALS: BP 135/83; PULSE 67; RESP 20; TEMP 36.3; O2SAT 97
[2025-01-24 16:10] VITALS: BP 134/88; PULSE 83; RESP 18; TEMP 36.4; O2SAT 99
[2025-01-24 20:00] VITALS: BP 136/71; PULSE 55; RESP 18; TEMP 36.3; O2SAT 98
[2025-01-25] VITALS: BP 152/84; PULSE 70; RESP 18; TEMP 36.5; O2SAT 98
[2025-01-25 04:00] VITALS: BP 155/79; PULSE 75; RESP 18; TEMP 36.6; O2SAT 97
[2025-01-25 08:00] VITALS: BP 149/83; PULSE 76; RESP 20; TEMP 36.3; O2SAT 100
[2025-01-25 12:00] VITALS: BP 114/49; PULSE 68; RESP 18; TEMP 36.7; O2SAT 100
[2025-01-25 16:00] VITALS: BP 130/90; PULSE 69; RESP 18; TEMP 36.6; O2SAT 95
[2025-01-25 20:00] VITALS: BP 132/92; PULSE 76; RESP 19; TEMP 36.3; O2SAT 98
[2025-01-26] VITALS: BP 113/79; PULSE 79; RESP 18; TEMP 36.7; O2SAT 99
[2025-01-26 04:00] VITALS: BP 154/79; PULSE 75; RESP 18; TEMP 36.1; O2SAT 100
[2025-01-26 08:00] VITALS: BP 117/71; PULSE 70; RESP 17; TEMP 36.4; O2SAT 100
[2025-01-26 12:00] VITALS: BP 146/84; PULSE 75; RESP 17; TEMP 36.6; O2SAT 99
[2025-01-26 16:00] VITALS: BP 116/77; PULSE 71; RESP 17; TEMP 36.4; O2SAT 100
[2025-01-26 20:00] VITALS: BP 122/87; PULSE 72; RESP 18; TEMP 36.7; O2SAT 99
[2025-01-27] VITALS: BP 139/73; PULSE 93; RESP 18; TEMP 37.2; O2SAT 99
[2025-01-27 08:10] VITALS: BP 136/73; PULSE 68; RESP 18; TEMP 36.2; O2SAT 96
[2025-01-27 12:12] VITALS: BP 149/93; PULSE 62; RESP 18; TEMP 36.3; O2SAT 97
[2025-01-27 15:59] VITALS: BP 137/86; PULSE 80; RESP 20; TEMP 36.4; O2SAT 99
[2025-01-27 20:00] VITALS: BP 111/75; PULSE 90; RESP 18; TEMP 37.4; O2SAT 98
[2025-01-28] VITALS: BP 140/74; PULSE 77; RESP 18; TEMP 37.1; O2SAT 98
[2025-01-28 04:00] VITALS: BP 133/72; PULSE 75; RESP 18; TEMP 36.9; O2SAT 99
[2025-01-28 08:43] VITALS: BP 146/98; PULSE 75; RESP 20; TEMP 36.3; O2SAT 94
[2025-01-28 12:22] VITALS: BP 117/67; PULSE 72; RESP 18; TEMP 36.2; O2SAT 98
[2025-01-28 12:44] LABS: CREATININE 1.3 mg/dL (0.6-1.0); UREA NITROGEN BLOOD 13.0 mg/dL (9-23)
[2025-01-28 16:08] VITALS: BP 156/87; PULSE 63; RESP 18; TEMP 36.3; O2SAT 99
[2025-01-28 18:27] LABS: BASOPHILS % 0.2 % (0.0-2.0); EOSINOPHILS % 6.1 % (0.0-5.0); HEMATOCRIT. 35.0 % (36.0-48.0); HEMOGLOBIN. 11.5 g/dL (12.0-16.0); LYMPHOCYTES % 24.6 % (20.0-50.0); MEAN PLATELET VOLUME 8.3 fl (7.4-10.4); MONOCYTES % 6.8 % (2.0-8.0); NEUTROPHILS % 62.3 % (40.0-76.0); PLATELET 407 x1000/uL (130-400); RED BLOOD CELL COUNT 4.07 mill/uL (4.2-5.4); RED CELL DISTRIBUTION WIDTH 13.7 % (11.6-14.6)
[2025-01-28 18:37] LABS: CREATININE 1.3 mg/dL (0.6-1.0); UREA NITROGEN BLOOD 11.0 mg/dL (9-23)
[2025-01-28 20:00] VITALS: BP 128/83; PULSE 72; RESP 18; TEMP 36; O2SAT 99
[2025-01-29] VITALS: BP 128/92; PULSE 89; RESP 16; TEMP 36.9; O2SAT 98
[2025-01-29 04:00] VITALS: BP 129/81; PULSE 92; RESP 17; TEMP 37.1; O2SAT 97
[2025-01-29 08:00] VITALS: BP 134/84; PULSE 11; RESP 18; TEMP 36.6; O2SAT 94
[2025-01-29 12:00] VITALS: BP 134/84; PULSE 71; RESP 16; TEMP 37.1; O2SAT 98
[2025-01-29 16:00] VITALS: BP 141/78; PULSE 75; PULSE 78; RESP 20; TEMP 36.7; O2SAT 99
[2025-01-29 20:00] VITALS: BP 122/62; PULSE 74; RESP 16; TEMP 36.6; O2SAT 100
[2025-01-30] VITALS: BP 129/84; PULSE 88; RESP 17; TEMP 36.7; O2SAT 100
[2025-01-30 04:00] VITALS: BP 141/85; PULSE 76; RESP 18; TEMP 36.5; O2SAT 100
[2025-01-30 08:00] VITALS: BP 128/83; PULSE 71; RESP 16; TEMP 36.5; O2SAT 100
[2025-01-30 12:00] VITALS: BP 117/81; PULSE 74; RESP 16; TEMP 36.2; O2SAT 96
[2025-01-30 16:00] VITALS: BP 102/82; PULSE 71; RESP 18; TEMP 36.3; O2SAT 100
[2025-01-30 20:00] VITALS: BP 119/85; PULSE 71; RESP 16; TEMP 36.7; O2SAT 99
[2025-01-31] VITALS: BP 129/89; PULSE 69; RESP 17; TEMP 36.6; O2SAT 98
[2025-01-31 04:00] VITALS: BP 128/78; PULSE 87; RESP 16; TEMP 36.6; O2SAT 98
[2025-01-31 08:00] VITALS: BP 132/94; PULSE 82; RESP 19; TEMP 36.8; O2SAT 99
[2025-01-31 12:00] VITALS: BP 119/85; PULSE 72; RESP 19; TEMP 36.7; O2SAT 100
[2025-01-31 16:00] VITALS: BP 145/78; PULSE 74; RESP 18; TEMP 36.4; O2SAT 98
[2025-01-31 20:00] VITALS: BP 139/86; PULSE 76; RESP 17; TEMP 37.2; O2SAT 100
[2025-02-01 04:00] VITALS: BP 127/78; PULSE 92; RESP 17; O2SAT 99
[2025-02-01 08:00] VITALS: BP 124/77; PULSE 63; RESP 18; TEMP 36.4; O2SAT 100
[2025-02-01 12:00] VITALS: BP 134/79; PULSE 69; RESP 18; TEMP 36.6; O2SAT 100
[2025-02-01 16:00] VITALS: BP 140/90; PULSE 84; RESP 18; TEMP 36.6; O2SAT 100
[2025-02-01 20:00] VITALS: BP 133/89; PULSE 91; RESP 16; TEMP 37; O2SAT 100
[2025-02-01 22:24] LABS: CREATININE 1.4 mg/dL (0.6-1.0); UREA NITROGEN BLOOD 9.0 mg/dL (9-23)
[2025-02-02] VITALS: BP 152/90; PULSE 92; RESP 16; TEMP 37; O2SAT 100
[2025-02-02 04:00] VITALS: BP 145/87; PULSE 92; RESP 18; TEMP 36.6; O2SAT 100
[2025-02-02 08:00] VITALS: BP 133/94; PULSE 87; RESP 18; TEMP 36.4; O2SAT 98
[2025-02-02 12:00] VITALS: BP 137/79; PULSE 76; RESP 20; TEMP 36.5; O2SAT 96
[2025-02-02 16:00] VITALS: BP 115/78; PULSE 80; RESP 20; TEMP 36.6; O2SAT 92
[2025-02-02 20:00] VITALS: BP 136/96; PULSE 87; RESP 20; TEMP 36.4; O2SAT 98
[2025-02-02] MEDS: ENOXAPARIN 40MG/0.4ML SYR SUBCUT SCH (20:43)
[2025-02-03] VITALS: BP 144/93; PULSE 90; RESP 20; TEMP 36.4; O2SAT 98
[2025-02-03 04:00] VITALS: BP 144/91; PULSE 98; RESP 20; TEMP 36.3; O2SAT 98
[2025-02-03 08:00] VITALS: BP 141/95; PULSE 85; RESP 18; TEMP 36.3; O2SAT 100
[2025-02-03 09:56] LABS: BASOPHILS % 0.2 % (0.0-2.0); EOSINOPHILS % 4.4 % (0.0-5.0); HEMATOCRIT. 35.7 % (36.0-48.0); HEMOGLOBIN. 11.6 g/dL (12.0-16.0); LYMPHOCYTES % 23.2 % (20.0-50.0); MEAN PLATELET VOLUME 8.0 fl (7.4-10.4); MONOCYTES % 8.1 % (2.0-8.0); NEUTROPHILS % 64.1 % (40.0-76.0); PLATELET 319 x1000/uL (130-400); RED BLOOD CELL COUNT 4.14 mill/uL (4.2-5.4); RED CELL DISTRIBUTION WIDTH 13.8 % (11.6-14.6)
[2025-02-03 10:17] LABS: CREATININE 1.4 mg/dL (0.6-1.0); TRIGLYCERIDE 90 mg/dL (0-150); UREA NITROGEN BLOOD 7 mg/dL (9-23)
[2025-02-03 10:19] LABS: ASPARTATE AMINOTRANSFERASE 24 IU/L (<34); BILIRUBIN TOTAL 0.4 mg/dL (0.1-1.0)
[2025-02-03 10:20] LABS: PROTEIN TOTAL 7.1 g/dL (6.0-8.3)
[2025-02-03 12:00] VITALS: BP 129/78; PULSE 91; RESP 18; TEMP 36.3; O2SAT 99
[2025-02-03 16:00] VITALS: BP 134/91; PULSE 77; RESP 18; TEMP 36.6; O2SAT 95
[2025-02-03 20:00] VITALS: BP 139/88; PULSE 88; RESP 17; TEMP 36.8; O2SAT 100
[2025-02-04] VITALS: BP 140/97; PULSE 98; RESP 19; TEMP 36.7; O2SAT 95
[2025-02-04 04:00] VITALS: BP 133/113; PULSE 100; RESP 19; TEMP 36.3; O2SAT 100
[2025-02-04 08:00] VITALS: BP 132/92; PULSE 87; RESP 20; TEMP 36.6; O2SAT 100
[2025-02-04] MEDS: FAMOTIDINE 20MG TABLET PO SCH (09:25)
[2025-02-04 10:00] VITALS: BP 132/92; PULSE 87; RESP 18; TEMP 97.8
== END 2025-02-04 12:55 | DRG 853 ==
LOC: ER 21:19 → EDBD 21:19 → CVICU 22:23 → EDBEDREQ 22:31 → EDBEDREQTM 22:31 → 5EST 01-19 01:35 → 7WST 01-23 11:25 → 8EST 01-28 18:01
PROVIDERS: ADMIT Internal Medicine; ATTEND Internal Medicine
PROC: 027034Z Dilation of Coronary Artery, One Artery with Drug-eluting Intraluminal Device, Percutaneous Approach (ICD-10-PCS; principal; 2025-01-05)
PROC: B211YZZ Fluoroscopy of Multiple Coronary Arteries using Other Contrast (ICD-10-PCS; 2025-01-05)
PROC: B215YZZ Fluoroscopy of Left Heart using Other Contrast (ICD-10-PCS; 2025-01-05)
PROC: B41FYZZ Fluoroscopy of Right Lower Extremity Arteries using Other Contrast (ICD-10-PCS; 2025-01-05)
PROC: 5A12012 Performance of Cardiac Output, Single, Manual (ICD-10-PCS; 2025-01-05)
PROC: 5A1955Z Respiratory Ventilation, Greater than 96 Consecutive Hours (ICD-10-PCS; 2025-01-05)
PROC: 0BH17EZ Insertion of Endotracheal Airway into Trachea, Via Natural or Artificial Opening (ICD-10-PCS; 2025-01-05)
PROC: 0D9670Z Drainage of Stomach with Drainage Device, Via Natural or Artificial Opening (ICD-10-PCS; 2025-01-05)
PROC: 4A00X4Z Measurement of Central Nervous Electrical Activity, External Approach (ICD-10-PCS; 2025-01-08)
PROC: 02HV33Z Insertion of Infusion Device into Superior Vena Cava, Percutaneous Approach (ICD-10-PCS; 2025-01-14)
PROC: B548ZZA Ultrasonography of Superior Vena Cava, Guidance (ICD-10-PCS; 2025-01-14)
DX: A41.9 Sepsis, unspecified organism (principal); E11.01 Type 2 diabetes mellitus with hyperosmolarity with coma; I21.09 ST elevation (STEMI) myocardial infarction involving other coronary artery of anterior wall; I46.2 Cardiac arrest due to underlying cardiac condition; J96.01 Acute respiratory failure with hypoxia; R57.0 Cardiogenic shock; G92.9 Unspecified toxic encephalopathy; I50.43 Acute on chronic combined systolic (congestive) and diastolic (congestive) heart failure; N17.0 Acute kidney failure with tubular necrosis; I49.01 Ventricular fibrillation; K56.609 Unspecified intestinal obstruction, unspecified as to partial versus complete obstruction; K56.7 Ileus, unspecified; E87.20 Acidosis, unspecified; I16.1 Hypertensive emergency; E87.0 Hyperosmolality and hypernatremia; G93.1 Anoxic brain damage, not elsewhere classified; I13.0 Hypertensive heart and chronic kidney disease with heart failure and stage 1 through stage 4 chronic kidney disease, or unspecified chronic kidney disease; Z68.41 Body mass index [BMI] 40.0-44.9, adult; E83.39 Other disorders of phosphorus metabolism; E83.41 Hypermagnesemia; E87.6 Hypokalemia; D64.9 Anemia, unspecified; F10.20 Alcohol dependence, uncomplicated; F41.9 Anxiety disorder, unspecified; E11.22 Type 2 diabetes mellitus with diabetic chronic kidney disease; G35 Multiple sclerosis; K59.00 Constipation, unspecified; E11.649 Type 2 diabetes mellitus with hypoglycemia without coma; E66.813 Obesity, class 3; F17.210 Nicotine dependence, cigarettes, uncomplicated; K76.9 Liver disease, unspecified; N18.9 Chronic kidney disease, unspecified; Z79.02 Long term (current) use of antithrombotics/antiplatelets; Z79.4 Long term (current) use of insulin; Z79.82 Long term (current) use of aspirin; Z79.899 Other long term (current) drug therapy
CPT/HCPCS: 31500; 31720; 36415; 36573; 36600; 70551; 71045; 74018; 74176; 76770; 80048; 80051; 80053; 80061; 80076; 80202; 80305; 81003; 82010; 82043; 82140; 82375; 82550; 82570; 82607; 82728; 82746; 82805; 82962; 83036; 83540; 83550; 83605; 83735; 83880; 83930; 84075; 84100; 84145; 84300; 84450; 84460; 84478; 84484; 85025; 85027; 85347; 86850; 86900; 87070; 92928; 92950; 93005; 93306; 93458; 94002; 94003; 94070; 94640; 94664; 94760; 95816; 96365; 96368; 96375; 97110; 97116; 97163; 97166; 97530; 97535; 98960; 99291; A4606; A6449; C1725; C1769; C1874; C1887; C1892; C1893; J0282; J0461; J1308; J1644; J1650; J1815; J1938; J2003; J2060; J2250; J2405; J2470; J2543; J2765; J3373; J3475; J3480; J3490; J7030; J7040; J7042; J7060; J7070; J7608; Q0163; Q9963; Q9967; J8499